=== PATIENT | male | born 1975 | race Caucasian/White ===

== ENCOUNTER 2018-02-27 09:31 | Emergency (ER) | payer MEDICAID ==
[2018-02-27] MEDS: KETOROLAC 30 MG INJ IM (10:06)
== END 2018-02-27 11:47 | disposition home or self-care (01) ==
LOC: FTE 09:31
DX: M79.671 Pain in right foot (principal); M79.604 Pain in right leg
CPT/HCPCS: 73630; 93971; 96372; 99285-25

== ENCOUNTER 2019-01-28 12:05 | Emergency (ER) | payer BC, MEDICARE, MEDICAID ==
[2019-01-28] MEDS: CEPHALEXIN 500 MG CAP PO (13:53)
[2019-01-28] MEDS: IBUPROFEN 600 MG TAB PO (13:53)
== END 2019-01-28 14:59 | disposition home or self-care (01) ==
LOC: FTE 12:05
DX: K08.89 Other specified disorders of teeth and supporting structures (principal)
CPT/HCPCS: 99283

== ENCOUNTER 2019-02-03 20:44 | Emergency (ER) | payer SELFPAY, BC, MEDICAID, MEDICARE | END 2019-02-04 00:52 | disposition left against medical advice (07) | LOC: E/R 02-04 00:52 | DX: Z53.21 Procedure and treatment not carried out due to patient leaving prior to being seen by health care provider (principal) ==